=== PATIENT | male | born 1960 | race Caucasian/White ===

== ENCOUNTER 2025-09-11 09:00 | Outpatient (AMB) | payer OTHER, SELFPAY ==
--- NOTE | 2025-09-11 09:13 | MHC.PC.OV ---
Vital Signs 09/11/25 09:15 Height 5 ft 10 in Weight 222 lb BMI 31.9 BP 120/68 Blood Pressure Location Lt brachial Position Sitting Respiration 16 Pulse 74 Pulse Source Pulse Oximeter Temp 96.9 F Temp Source Temporal Artery Scan Pulse Oximetry (%) 98 Oxygen Delivery Method Room Air Intake Visit Reasons: 6 mo f/u Work Manager Required: No Allergies cat dander (CATS) Allergy (Unknown, Unverified 06/21/20 18:29) HIVES Medication List - Last Reconciled 09/11/25 by Destiny Hong MD alprazolam 0.5 - 1 mg PO PRN cholecalciferol (vitamin D3) 125 mcg PO DAILY lisinopril 5 mg PO DAILY Tobacco use date assessed: 09/11/25 Dental Screening Dental Screen Date: 09/11/25 Did you have a dental visit in the last 12 months?: Yes Did you have a dental problem in the last 6 months where you did not have access to dental care?: No Was dental information given to patient?: Patient has dentist HPI HPI Comments History of Present Illness Details The patient is a 65 year old male presenting to [facility] and for follow-up. Prediabetes: The patient has a history of prediabetes with a prior hemoglobin A1c of 5.9. This is being managed with lifestyle modifications, and he is not on any medications for this condition. He reports making healthy dietary choices and maintains a high level of physical activity through coaching two sports, riding a bike, and going to the gym. Left Ankle Pain: The patient reports his left ankle has been bothering him, with symptoms exacerbated by his constant physical activity. He had a successful surgery on his right foot previously. He has been evaluated at [facility] and is scheduled to see Dr. Mora on October 17 to discuss surgery, which he plans for mid-December. 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 1. Little interest or pleasure in doing things: not at all 2. Feeling down, depressed, or hopeless: not at all 3. Trouble falling or staying asleep, or sleeping too much: not at all 4. Feeling tired or having little energy: not at all 5. Poor appetite or overeating: not at all 6. Feeling bad about yourself - or that you are a failure or have let yourself or your family down: not at all 7. Trouble concentrating on things, such as reading the newspaper or watching television: not at all 8. Moving or speaking so slowly that other people could have noticed. Or the opposite - being so fidgety or restless that you have been moving around a lot more than usual: not at all 9. Thoughts that you would be better off or of hurting yourself in some way: not at all Total score: 0 Depression Screening Interpretation: Negative Depression Screening Done: Yes 13645 - PHQ-9 Billing: Yes Source: Developed by Drs. Rajan Alfaro, Lisbeth To, Dontae Davis and colleagues, with an educational moises from [employer]. AUDIT C Alcohol Use Questionnaire (AUDIT-C) 1. How often do you have a drink containing alcohol?: Monthly or less 2. How many drinks containing alcohol do you have on a typical day when you are drinking?: 1 or 2 3. How often do you have six or more drinks on one occasion?: Never Total Score: 1 Review of Systems Narrative Review of Systems - Musculoskeletal: Reports his ankles bother him, particularly the left one. - Card: negative - Pulm: negative Physical exam (Primary Care) Vital Signs: Last Vital Signs Temp 96.9 F 09/11/25 09:15 Pulse 74 09/11/25 09:15 Resp 16 09/11/25 09:15 BP 120/68 09/11/25 09:15 Pulse Ox 98 09/11/25 09:15 Oxygen Delivery Method Room Air 09/11/25 09:15 BMI result Body Mass Index 31.9 Tobacco/Smoking Status: Tobacco use Status Tobacco use date assessed 09/11/25 09/11/25 09:20 Patient Tobacco Use Status Never used Tobacco 09/11/25 09:20 e-Cigarette/Vaping Use Never Used 09/11/25 09:20 PHQ-9: PHQ-9 Score PHQ-9: Total score 0 09/11/25 09:20 Depression Screening Interpretation: Negative Narrative Physical Exam - Gen: NAD - Cardiovascular: Normal heart sounds. A soft murmur is present - Respiratory: Lungs are clear to auscultation bilaterally - Abdomen: Normal bowel sounds. Abdomen is soft and non tender. - Extremities: trace edema bilaterally Coding Level of Care Code Est Pt Level 4 (86788) Complex visit Add On G2211 Diagnoses Impaired fasting glucose R73.01 Primary hypertension I10 Additional Codes PHQ-9 - 12652 - PHQ-9 Billing: Yes ([id number]) Assessment & Plan Assessment & Plan (1) Impaired fasting glucose: Code(s): R73.01 - Impaired fasting glucose Category: Medical (2) Primary hypertension: Code(s): I10 - Essential (primary) hypertension Category: Medical Plan Assessment and Plan 1. Prediabetes - The patient's hemoglobin A1c was 5.9, which is in the prediabetic range - He will continue with lifestyle modifications, including diet and exercise, as he has been doing well with this approach. - Will recheck fasting labs, including a lipid profile and hemoglobin A1c. 2. Left Ankle Pain - The patient is experiencing pain in his left ankle, which has flared up with increased activity. - Follow up with [facility] 3. Hypertension - The patient is managed on lisinopril - His blood pressure is well-controlled. 4. Preventative Care - A referral will be placed for a colonoscopy, as he is due. - Will review his vaccination records once they are transferred - A comprehensive physical is scheduled for March. Plan - Get fasting labs, including a lipid profile and hemoglobin A1c. - Patient to continue with lifestyle modifications for prediabetes management. - Place a referral for a colonoscopy consultation - Defer tetanus vaccination until full records are received; he may be due next year. Patient Instructions - Please go to the lab to have fasting bloodwork done. - Continue with your current diet and exercise routine. - Our referral team will contact you in a couple of weeks to help you schedule a consultation for a colonoscopy. Orders: Orders Lipid Panel Today I10 - Essential (primary) hypertension, R73.01 - Impaired fasting glucose Comprehensive Met. Panel Today I10 - Essential (primary) hypertension Hemoglobin A1c Today I10 - Essential (primary) hypertension Vitamin D 25-OH Total Today I10 - Essential (primary) hypertension Referrals Gastroenterology Referral Z12.11 - Encounter for screening for malignant neoplasm of colon, Z12.12 - Encounter for screening for malignant neoplasm of rectum
[2025-09-11 09:15] VITALS: BP 120/68; PULSE 74; RESP 16; TEMP 36.1; O2SAT 98; BMI 31.9
== END 2025-09-11 09:57 | disposition home or self-care (01) ==
LOC: HO.HMCHD 09:01
PROVIDERS: PCP Internal Medicine; Visit Provider Internal Medicine
DX: R73.01 Impaired fasting glucose (principal); I10 Essential (primary) hypertension

== ENCOUNTER → 2025-09-11 09:00 | Outpatient (BNVA) | payer OTHER, SELFPAY | PROVIDERS: PCP Internal Medicine; Visit Provider Internal Medicine | DX: Z13.31 Encounter for screening for depression (principal) | CPT/HCPCS: 96127 ==

== ENCOUNTER 2025-09-15 09:00 | Outpatient (REF) | payer OTHER, SELFPAY ==
[2025-09-15 15:16] LABS: Alanine Aminotransferase 27 U/L (0-40); Albumin Level 4.7 g/dL (3.5-5.0); Alkaline Phosphatase 49 U/L (39-117); Anion Gap 13 (12-20); Aspartate Amino Transferase 27 U/L (5-37); Blood Urea Nitrogen 17 mg/dL (9-16); Calcium 9.5 mg/dL (8.4-10.2); Carbon Dioxide 26 mmol/L (22-29); Chloride 102 mmol/L (96-108); Cholesterol 218 mg/dL (<200); Estimated Glomerular Filt Rate > 60; HDL Cholesterol 42 mg/dL (>40); Potassium 4.5 mmol/L (3.3-5.1); Sodium 136 mmol/L (135-145); Total Protein 7.3 g/dL (6.5-8.0); Triglycerides 110 mg/dL (<150)
== END 2025-09-15 09:01 | disposition home or self-care (01) ==
LOC: HO.HKASLDS 09:00
PROVIDERS: PCP Internal Medicine; Visit Provider Internal Medicine
DX: I10 Essential (primary) hypertension (principal); R73.01 Impaired fasting glucose; Z13.21 Encounter for screening for nutritional disorder
CPT/HCPCS: 36415; 80053; 80061; 82306; 83036